=== PATIENT | female | born 1955 | race Asian ===

== ENCOUNTER 2019-07-01 14:41 | Emergency (ER) | payer OTHER ==
[~2019-07-01] VITALS: Ht 154.9 cm; Wt 59.9 kg
[2019-07-01 14:55] VITALS: BP 163/63; Ht 154.9 cm; Wt 59.9 kg
== END 2019-07-01 15:30 | disposition home or self-care (01) ==
LOC: ED 14:41
DX: K11.7 Disturbances of salivary secretion (principal); I10 Essential (primary) hypertension